=== PATIENT | male | born 1950 | race Caucasian/White ===

== ENCOUNTER 2020-09-01 10:08 | Emergency (ER) | payer OTHER, SELFPAY ==
[~2020-09-01] VITALS: Ht 172.7 cm; Wt 77.1 kg
[2020-09-01] MEDS ORDERED: NACL 0.9% 1,000 ML IV ONE (10:25)
[2020-09-01] MEDS ORDERED: KETOROLAC 30 MG/ML VIAL IVP ONE (10:25)
[2020-09-01 10:26] VITALS: BP 124/84
[2020-09-01 10:43] LABS: BASOPHILS # (AUTO) 0.1 K/uL (0.00-0.22); BASOPHILS % (AUTO) 1.6 % (0.0-2.0); EOSINOPHILS % (AUTO) 0.7 % (0.0-4.0); HEMATOCRIT 48.8 % (36-52); HEMOGLOBIN 16.4 g/dL (12.0-18.0); LYMPHOCYTES # (AUTO) 1.1 K/uL (2.0-11.5); LYMPHOCYTES % (AUTO) 21.1 % (20.5-51.1); MEAN CORPUSCULAR HEMOGLOBIN 30 pg (27-31); MEAN CORPUSCULAR HGB CONC 34 g/dL (33-37); MEAN CORPUSCULAR VOLUME 89.8 fL (80-94); MONOCYTES # (AUTO) 0.6 K/uL (0.8-1.0); NEUTROPHILS # (AUTO) 3.3 K/uL (1.8-7.7); NEUTROPHILS % (AUTO) 65.6 % (42.2-75.2); PLATELET COUNT (AUTO) 134 K/uL (140-450); RED BLOOD CELL COUNT(AUTO) 5.43 MIL/uL (4.20-6.10); RED CELL DISTRIBUTION WIDTH 13.4 % (11.6-13.7); WHITE BLOOD COUNT (AUTO) 5.1 K/uL (4.8-10.8)
[2020-09-01 10:55] LABS: ALBUMIN 4.5 g/dL (3.4-5.0); ANION GAP 13.7 (8-16); CARBON DIOXIDE 26.6 mmol/L (21-32); POTASSIUM 4.3 mmol/L (3.5-5.1); TOTAL BILIRUBIN 2.3 mg/dL (0.0-1.0)
[2020-09-01] MEDS ORDERED: MORPHINE SULFATE 4 MG/ML SYR IVP ONE (11:30)
[2020-09-01 12:21] VITALS: BP 119/79
== END 2020-09-01 12:21 | disposition home or self-care (01) ==
LOC: MED 10:08
DX: R10.9 Unspecified abdominal pain (principal); R05 Cough; F12.90 Cannabis use, unspecified, uncomplicated; Z98.890 Other specified postprocedural states
CPT/HCPCS: 36415; 74176; 80053; 81002; 83690; 85025; 96361; 96374; 96375; 99284; J1885; J2270; J7030